=== PATIENT | male | born 1990 | race Two or more races ===

== ENCOUNTER 2024-02-29 23:29 | Emergency (ER) | payer MEDICAID ==
[~2024-02-29] VITALS: Ht 172.7 cm; Wt 99.9 kg
[2024-03-01 01:26] VITALS: BP 116/72; PULSE 74; RESP 16; TEMP 98.4; O2SAT 96
[2024-03-01] MEDS ORDERED: LIDO5GEL EX (01:38)
== END 2024-03-01 01:26 | disposition home or self-care (01) ==
LOC: ER 23:29
DX: K64.8 Other hemorrhoids (principal)